=== PATIENT | female | born 1990 | race Caucasian/White ===

== ENCOUNTER 2016-09-02 15:56 | Emergency (ER) | payer MEDICAID ==
[~2016-09-02] VITALS: Ht 162.6 cm; Wt 69.0 kg
[2016-09-02 18:38] VITALS: BP 122/86
== END 2016-09-02 20:10 | disposition left against medical advice (07) ==
LOC: ER 16:59
DX: R11.2 Nausea with vomiting, unspecified (principal)
CPT/HCPCS: 81025; 99283